=== PATIENT | female | born 1950 | race Caucasian/White ===

== ENCOUNTER 2017-11-07 16:21 | Emergency (ER) | payer MEDICARE, MEDICAID ==
[2017-11-07] MEDS ORDERED: NORMAL SALINE 1000 ML 1,000 ML IV PRN (16:37)
[2017-11-07] MEDS ORDERED: ONDANSETRON 4 MG TAB.RAPDIS PO ONE (16:38)
--- NOTE | 2017-11-07 16:39 | ER Document Report ---
ED Medical Screen (RME) - General Chief Complaint: Nausea/Vomiting/Diarrhea Stated Complaint: DIARRHEA,NAUSEA Time Seen by Provider: 11/07/17 16:37 Mode of Arrival: Ambulatory Information source: Patient Notes: This is a 67-year-old female with a history of COPD, insulin requiring diabetes , GERD, restless leg, irritable bowel disease. Patient presents to the emergency room with 2 day history of nausea, vomiting, diarrhea, chills, subjective fevers and shortness of breath. TRAVEL OUTSIDE OF THE [place] IN LAST 30 DAYS: No - Related Data Allergies/Adverse Reactions: Penicillins Allergy (Verified 11/07/17 16:22) Physical Exam - Vital signs Vitals: Temp Pulse Resp BP Pulse Ox 97.6 F 100 18 153/87 H 97 11/07/17 16:31 11/07/17 16:31 11/07/17 16:31 11/07/17 16:31 11/07/17 16:31 Course - Vital Signs Vital signs: Temp Pulse Resp BP Pulse Ox 97.6 F 100 18 153/87 H 97 11/07/17 16:31 11/07/17 16:31 11/07/17 16:31 11/07/17 16:31 11/07/17 16:31
[2017-11-07 17:09] LABS: A TYPE INFLUENZA AG NEGATIVE (NEGATIVE); B INFLUENZA AG NEGATIVE (NEGATIVE)
[2017-11-07 17:13] LABS: APPEARANCE,URINE SLIGHTLY-CLOUDY; BILIRUBIN,URINE NEGATIVE (NEGATIVE); COLOR,URINE YELLOW; GLUCOSE, URINE 50 mg/dL (NEGATIVE); KETONES,URINE 20 mg/dL (NEGATIVE); LEUKOCYTE ESTERASE,URINE NEGATIVE (NEGATIVE); NITRITE,URINE NEGATIVE (NEGATIVE); PROTEIN,URINE NEGATIVE (NEGATIVE); UROBILINOGEN,URINE NEGATIVE mg/dL (<2.0)
[2017-11-07 17:22] LABS: ABSOLUTE EOSINOPHILS # (AUTO) 0.1 10^3/uL (0.0-0.6); ABSOLUTE LYMPHOCYTES (AUTO) 1.7 10^3/uL (0.5-4.7); ABSOLUTE MONOCYTES (AUTO) 0.5 10^3/uL (0.1-1.4); ABSOLUTE NEUT (AUTO) 9.1 10^3/uL (1.7-8.2); BASOPHILS % (AUTO) 0.4 % (0-2); EOSINOPHILS % (AUTO) 0.8 % (0-6); HEMATOCRIT 40.1 % (36.0-47.0); HEMOGLOBIN 13.5 g/dL (12.0-15.5); LYMPHOCYTES % (AUTO) 14.6 % (13-45); MEAN CORPUSCULAR HEMOGLOBIN 31.5 pg (27.0-33.4); MEAN CORPUSCULAR HGB CONC 33.8 g/dL (32.0-36.0); MEAN CORPUSCULAR VOLUME 93 fl (80-97); PLATELET COUNT 196 10^3/uL (150-450); RED CELL DISTRIBUTION WIDTH 13.8 % (11.5-14.0); SEGMENTED NEUTROPHILS % (AUTO) 80.2 % (42-78); TOTAL CELLS COUNTED % (AUTO) 100 %; WHITE BLOOD COUNT 11.4 10^3/uL (4.0-10.5)
--- NOTE | 2017-11-07 17:23 | RADIOLOGY REPORT (SQ) ---
EXAM DESCRIPTION: CHEST SINGLE VIEW COMPLETED DATE/TIME: 11/07/2017 5:11 pm REASON FOR STUDY: weakness COMPARISON: None. EXAM PARAMETERS: NUMBER OF VIEWS: One view. TECHNIQUE: Single frontal radiographic view of the chest acquired. RADIATION DOSE: NA LIMITATIONS: None. FINDINGS: LUNGS AND PLEURA: No opacities, masses or pneumothorax. No pleural effusion. MEDIASTINUM AND HILAR STRUCTURES: No masses. Contour normal. HEART AND VASCULAR STRUCTURES: Heart normal in size. Normal vasculature. BONES: No acute findings. Degenerative changes in the spine and left shoulder. HARDWARE: Right shoulder prosthesis. OTHER: No other significant finding. IMPRESSION: NO ACUTE RADIOGRAPHIC FINDING IN THE CHEST. TECHNICAL DOCUMENTATION: JOB ID: [id number] [employer]- All Rights Reserved
[2017-11-07 19:03] LABS: ALANINE AMINOTRANSFERASE 44 U/L (9-52); ALBUMIN 4.3 g/dL (3.5-5.0); ALKALINE PHOSPHATASE 82 U/L (38-126); ANION GAP 11 (5-19); ASPARTATE AMINO TRANSFERASE 53 U/L (14-36); BILIRUBIN,DIRECT 0.2 mg/dL (0.0-0.4); BILIRUBIN,TOTAL 0.4 mg/dL (0.2-1.3); BLOOD UREA NITROGEN 11 mg/dL (7-20); CARBON DIOXIDE 26 mmol/L (22-30); CHLORIDE 106 mmol/L (98-107); GLUCOSE 125 mg/dL (75-110); POTASSIUM 3.9 mmol/L (3.6-5.0); SODIUM 143.3 mmol/L (137-145); TOTAL PROTEIN 7.2 g/dL (6.3-8.2)
[2017-11-07] MEDS ORDERED: ONDANSETRON ODT 4 MG TAB (6 TAB/ER DISP) PO PRN (19:43)
--- NOTE | 2017-11-07 19:44 | ER Document Report ---
ED General - General Chief Complaint: Nausea/Vomiting/Diarrhea Stated Complaint: DIARRHEA,NAUSEA Time Seen by Provider: 11/07/17 16:37 Mode of Arrival: Ambulatory Notes: Patient is a 67 year old female who presents with nausea, vomiting and diarrhea that has been ongoing for the past 24 hours. Multiple sick contacts with the same symptoms. Patient denies a history of similar symptoms in the past. Nothing seems to improve or worsen her symptoms. She states that she has had difficulty tolerating oral fluids but has been intermittent able to tolerate sips of water. She denies any localized abdominal pain. She has not seen her primary doctor regarding today's concerns. TRAVEL OUTSIDE OF THE [place] IN LAST 30 DAYS: No - Related Data Allergies/Adverse Reactions: butorphanol [From Stadol] Allergy (Verified 11/07/17 16:45) Penicillins Allergy (Verified 11/07/17 16:22) Sulfa (Sulfonamide Antibiotics) Allergy (Verified 11/07/17 16:45) Past Medical History - General Information source: Patient - Social History Smoking Status: Never Smoker Frequency of alcohol use: None Drug Abuse: None Lives with: Family Family History: Reviewed & Not Pertinent Patient has suicidal ideation: No Patient has homicidal ideation: No - Past Medical History Cardiac Medical History: Reports: Hx Hypercholesterolemia, Hx Hypertension Pulmonary Medical History: Reports: Hx COPD Endocrine Medical History: Reports: Hx Diabetes Mellitus Type 2 Renal/ Medical History: Denies: Hx Peritoneal Dialysis GI Medical History: Reports: Hx Gastroesophageal Reflux Disease Review of Systems - Review of Systems Notes: Constitutional: Negative for fever. HENT: Negative for sore throat. Eyes: Negative for visual changes. Cardiovascular: Negative for chest pain. Respiratory: Negative for shortness of breath. Gastrointestinal: Positive for vomiting and diarrhea Genitourinary: Negative for dysuria. Musculoskeletal: Negative for back pain. Skin: Negative for rash. Neurological: Negative for headaches, weakness or numbness. 10 point ROS negative except as marked above and in HPI. Physical Exam - Vital signs Vitals: Temp Pulse Resp BP Pulse Ox 97.6 F 100 18 153/87 H 97 11/07/17 16:31 11/07/17 16:31 11/07/17 16:31 11/07/17 16:31 11/07/17 16:31 Interpretation: Normal Notes: PHYSICAL EXAMINATION: GENERAL: Well-appearing, well-nourished and in no acute distress. HEAD: Atraumatic, normocephalic. EYES: Pupils equal round and reactive to light, extraocular movements intact, sclera anicteric, conjunctiva are normal. ENT: nares patent, oropharynx clear without exudates. Moist mucous membranes. NECK: Normal range of motion, supple without lymphadenopathy LUNGS: Breath sounds clear to auscultation bilaterally and equal. No wheezes rales or rhonchi. HEART: Regular rate and rhythm without murmurs ABDOMEN: Soft, nontender, normoactive bowel sounds. No guarding, no rebound. No masses appreciated. EXTREMITIES: Normal range of motion, no pitting or edema. No cyanosis. NEUROLOGICAL: No focal neurological deficits. Moves all extremities spontaneously and on command. PSYCH: Normal mood, normal affect. SKIN: Warm, Dry, normal turgor, no rashes or lesions noted. Course - Re-evaluation Re-evalutation: 11/07/17 19:40 Patient presents with cough, vomiting, and diarrhea at home consistent with a flulike illness although our flu test here is negative. Sensitivity for this years flu assay is apparently 91-92%. Clinical history and exam is not consistent with an acute bacterial meningitis, encephalitis, pneumonia, there is no evidence of a cellulitis on examination. Patient likewise denies any urinary symptoms. Chest x-ray is clear without any evidence of an acute pneumonia. Urinalysis without any evidence of a pyelonephritis. Patient does not have any focal abdominal tenderness to suggest an acute biliary pathology, acute appendicitis, acute mesenteric ischemia, bowel obstruction, bowel, or any other life-threatening acute intra-abdominal pathology as the etiology of the fever and additional symptoms today. Labs are otherwise unremarkable. Patient is tolerated oral intake without difficulty. Vitals at time of reassessment are within normal limits. At this time will discharge with return precautions and follow-up recommendations. Verbal discharge instructions given a the bedside and opportunity for questions given. Medication warnings reviewed. Patient is in agreement with this plan and has verbalized understanding of return precautions and the need for primary care follow-up in the next 24-72 hours. - Vital Signs Vital signs: Temp Pulse Resp BP Pulse Ox 97.5 F 92 18 141/60 H 96 11/07/17 20:33 11/07/17 20:33 11/07/17 20:33 11/07/17 20:33 11/07/17 20:33 - Laboratory Result Diagrams: 11/07/17 16:55 11/07/17 18:25 Laboratory results interpreted by me: 11/07/17 11/07/17 11/07/17 16:55 16:55 18:25 WBC 11.4 H Seg Neutrophils % 80.2 H Absolute Neutrophils 9.1 H Glucose 125 H AST 53 H Urine Glucose (UA) 50 H Urine Ketones 20 H Urine Ascorbic Acid 40 H - Diagnostic Test Radiology reviewed: Image reviewed, Reports reviewed Radiology results interpreted by me: 11/07/17 19:41 Chest x-ray: No acute infiltrate or pneumothorax Discharge - Discharge Clinical Impression: Vomiting and diarrhea, Cough Condition: Good Disposition: HOME, SELF-CARE Additional Instructions: Your symptoms are likely due to a viral infection. The only treatment at this time is supportive care including drinking plenty of fluids, Tylenol and ibuprofen, as well as nausea medicines which you will be sent home with. Your symptoms will likely last for 7-10 days. Please return to the emergency department immediately if you become confused, have persistent vomiting, pass out, have severe headache, or have any other symptoms that are worrisome to you. Follow-up with your primary care doctor in the next several days.
[2017-11-07 20:40] VITALS: BP 141/60
== END 2017-11-07 20:40 | disposition home or self-care (01) ==
LOC: ER 16:21
DX: R11.2 Nausea with vomiting, unspecified (principal); R19.7 Diarrhea, unspecified; R05 Cough
CPT/HCPCS: 99284; 96360; 96361; 36415; 85025; 80053; 81001; 87804; 71045; A9270 ×2; J7030; S0119